=== PATIENT | male | born 1990 | race Caucasian/White ===

== ENCOUNTER → 2016-09-19 | Emergency (ER) | payer OTHER | END | disposition disaster alternative care site (69) | LOC: GAMB 05:39 | DX: S67.21XA Crushing injury of right hand, initial encounter (principal); V49.9XXA Car occupant (driver) (passenger) injured in unspecified traffic accident, initial encounter; Y93.89 Activity, other specified ==

== ENCOUNTER → 2016-09-19 | Outpatient (CLI) | payer OTHER | END | disposition disaster alternative care site (69) | LOC: GRAD 14:04 | DX: M54.6 Pain in thoracic spine (principal); M43.8X4 Other specified deforming dorsopathies, thoracic region ==